=== PATIENT | female | born 1975 | race Caucasian/White ===

== ENCOUNTER 2017-04-28 06:30 | Day surgery (SDC) | payer BC ==
--- NOTE | 2017-04-26 16:48 | HP ---
HISTORY AND PHYSICAL: ATTENDING PHYSICIAN: Jasvir Choudhury MD * (DICTATED BY LATONIA PRUETT) DATE OF ADMISSION: The patient is scheduled for surgery at [facility] on . HISTORY OF PRESENT ILLNESS: The patient, Anitha maguire, is a 41-year-old female who is referred to us here at [facility] on 04/06/17 with a concern of a right breast lump. She was referred by her SPICE MIXER, Dr. Atwood, who is following her since she is 14 weeks and brought to their attention that this fullness in her right breast has been present for the past year, but feels more recently it is more pronounced and sensitive. Her family history is significant for mother being diagnosed with breast cancer at the age of 50 and is currently under the care of Dr. Calderon. Prior to her appointment here on 04/06/17, she underwent an ultrasound at [facility]. This revealed over the palpable area of fullness between 3 o'clock and 7 o'clock, there was a complex cystic mass measuring 5 cm in its greatest dimension. There was a large complex cystic mass was the diagnosis associated with this palpable finding in the right breast and she was then referred on to Dr. Choudhury for further evaluation. The patient again, as mentioned previously, is currently ; she is 14 weeks . This is her second of 2. She has a 7-year-old child. On our examination on 04/06/17, the right breast revealed the fullness in this region between 3 and 6 o'clock. The patient had some sensitivity in this area. Remaining breast exam on the right was negative. The axilla was negative. The left breast revealed some fullness in the upper outer quadrant in the 12 o' clock region. There were no dominant masses on the left and the axilla on the left is negative. An ultrasound in our office was done on 04/06/17. This confirms the complex cyst in the region of the right breast between 3 and 6 o' clock. There are no solid areas noted. The left breast was scanned as well in the area of prominence in the upper quadrant. This revealed dense breast tissue with some microcystic changes. At that appointment, it was discussed with the patient that because of her family history and this fullness in her breast while she is , we feel that tissue diagnosis is indicated to rule out malignancy. We arranged for the patient to undergo an ultrasound- guided core biopsy, which we thought would be more definitive than a fine- needle aspiration and this was done at [facility]. At [facility] on 04/20/17, the patient underwent an ultrasound-guided core biopsy by Dr. Sun. 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 There was no evidence of invasive or in situ carcinoma and this was reported by the pathologist at [facility]. We did discuss with the radiologist and pathologist on concerns that this was a fairly extensive area of microcystic and complex cystic changes. In light of her family history as well as the extent of the findings by ultrasound, although the pathology report came back benign, it was not felt that this was definitive because of the extensive area involved. It was explained to the patient because she is , we are limited as far as the how to further evaluate this with imagery, not able to do a mammogram or MRI at this point and with her family history and the fact that this has been present for some time, we felt that the only definitive way to assure her that this area is completely benign throughout is to do an excisional biopsy. We further consulted with Dr. Atwood who felt that if an excisional biopsy or surgery was indicated, the best time to perform this would be between week 14 and 20, which is currently where she is. We explained also to her that although the pathology so far is benign, we feel that it is a limited slice of tissue in a region that is fairly extensive and for this reason, we feel an excisional biopsy would be indicated. We did offer her that she is more than welcome to get a second opinion. We felt that monitoring this throughout her with ultrasounds could be an option, but again it is not a definitive diagnosis and with her family history, we recommended that tissue diagnosis of this complex cystic area be obtained to rule out any malignancy possible from this time forward as the progresses. The patient understands the concerns and had the opportunity to ask many questions. I spoke with Dr. Atwood as well in regards to this and at this time, she wishes to proceed with surgery as planned. She is scheduled for ultrasound-guided excisional biopsy of this right breast mass to be performed by Dr. Choudhury at [facility] on 04/28/17. PAST MEDICAL HISTORY: Negative for any chronic medical disorders. PAST SURGICAL HISTORY: Includes , she has a 7-year-old daughter. No other surgeries. MEDICATIONS: Current medicine, she is on vitamins only. ALLERGIES: She has no known drug allergies. SOCIAL HISTORY: She is , she is at this point I believe 16 weeks . She works full-time and has a 7-year-old daughter. She is a nonsmoker. No history of alcohol use. No history of drug use and no prior history of hepatitis. FAMILY HISTORY: Again, it should be noted that her mother had breast cancer at the age of 50. She is currently being treated and followed by Dr. Calderon for her breast cancer. PHYSICAL EXAMINATION VITAL SIGNS: Her height is 5 feet 2 inches, her weight is 120 pounds, her blood pressure is 130/81, her BMI was 21.9, pulse is 97, and respiratory rate is 18. HEENT: Within normal limits. NECK: Supple. There is no JVD or carotid bruits. Her thyroid was felt to be normal. LUNGS: Clear throughout. BREASTS: As mentioned previously, she has fullness in the inner quadrant of the right breast between 3 and 6 o'clock. There is not a dominant mass. Remaining breast exam is unremarkable and the axilla on the right is negative. The left breast revealed some fullness in the upper outer quadrant. There is no mass and the axilla on the left is negative. ABDOMEN: Reveals female who is 16 weeks . Her abdomen is soft and nontender. There are no masses. EXTREMITIES: Full range of motion without limitation. She is nonfocal and grossly intact. IMPRESSION: Right breast fullness, mass in this 16-week female. Ultrasound recently revealing a complex cyst of the right breast in the region of fullness. PLAN: At this time is for the patient to undergo excisional biopsy of this right breast mass for complete pathology analysis to rule out malignancy or atypia. The patient will undergo this surgery with the assistance of ultrasound guidance by Dr. Choudhury, which will be available to him in the OR. The patient will undergo the procedure with local anesthesia and IV sedation. LATONIA PRUETT [id number]/[facility] #: [id number] [facility]
[~2017-04-28 06:30] MED LIST: Buffered Lidocaine 0.9% SYRIN* 5 ML/SYR SYRINGE INTRADERM ONE
[2017-04-28] MEDS ORDERED: Bupivacaine 0.5% W/EPI SDV* 30 ML VIAL ONE ×2 (07:23→12:53)
[2017-04-28] MEDS ORDERED: Lidocaine 1% INJ* 10 MG/ML 30 ML SDV ONE (07:23)
[2017-04-28] MEDS ORDERED: fentaNYL* 50 MCG/ML 2 ML VIAL (100 MCG VIAL) ONE (07:43)
[2017-04-28] MEDS ORDERED: Lidocaine 2% PF * 5 ML VIAL ONE (07:43)
[2017-04-28] MEDS ORDERED: Propofol* 10 MG/ML 20 ML BTL IV PUSH ONE (07:43)
[2017-04-28] MEDS ORDERED: Bupivacaine 0.5% SDV PF* 30 ML VIAL ONE (08:39)
[2017-04-28 09:43] VITALS: BP 112/54
--- NOTE | 2017-04-28 13:38 | OP ---
DATE OF OPERATION: 04/28/17 [facility] DATE OF : 73 SURGEON: Jasvir Choudhury MD RD MANAGER: Meme Rodriguez NP ANESTHESIOLOGIST: Eduardo Alexis MD ANESTHESIA: Local plus MAC. PRE-OP DIAGNOSIS: Right breast mass. POST-OP DIAGNOSIS: Right breast mass. OPERATIVE PROCEDURE: 1. Ultrasound-guided needle localization. 2. Excisional right breast biopsy. INDICATIONS: The patient is a 41-year-old female, 17 weeks , with very strong family history of breast cancer, had a palpable mass that she has had for some time, has become larger and tender during this . She underwent an ultrasound-guided core biopsy that was reported to be benign. However, the lesion was large in the 5-cm range and it was felt that this was not traveling representative of the entire lesion and with the patient's history of the mother having breast cancer at a young age, premenopausal, a decision was made to perform an excisional biopsy of the lesion. This was consulted with Dr. Atwood about the proper time to perform this excisional biopsy and the patient is within the ideal period between 16 and 20 weeks. At the present time, she is 17 weeks' and the procedure is being done under local anesthesia and mild sedation. ESTIMATED BLOOD LOSS: Approximately 30 cc. DESCRIPTION OF PROCEDURE: The patient was taken to the procedure room. She underwent marking of the area. The localized area was palpable in the periphery of the areola between 3 and 7 p.m. An ultrasound preoperative confirm a cluster of complex cystic areas and after the patient was prepped and draped in the usual sterile fashion under ultrasound guidance, a hook wire needle was advanced directly into the lesion accessing it at approximately 7 o' clock and guiding it through the lesion and anchoring at this point. The needle was then released. The wire was left in place, confirmed by ultrasound and then we proceeded to then infiltrate lidocaine 1% in the surrounding area of the lesion under direct ultrasound guidance and after this was completed, a transverse incision of approximately 4 to 5 cm was done between 3 o'clock and 7 o'clock. The incision was done transversely. This was carried down through skin, subcutaneous tissue, the guidewire was followed to the tip. The surrounding tissue was then removed where I could see dilated complex cyst and enlarged cluster with mass-like effect. This was excised by sharp dissection until healthy tissue was seen. There was extra tissue in the inferior margin that was excised and sent as a true inferior margin. The margins were marked. Short superior, long lateral sent as a specimen. After this was done, hemostasis was accomplished with electrocautery and using suture ligation with 4 -0 Vicryl. After complete hemostasis was obtained, we then proceeded to close the subcutaneous tissue with interrupted 4-0 Vicryl suture and the skin was closed with subcuticular 4-0 Prolene suture and Steri-Strips. A light pressure dressing was applied to the right breast. The patient tolerated the procedure well. She was recovered, given instructions. [id number]/[facility] #: [id number] [facility]
== END 2017-04-28 10:04 | disposition home or self-care (01) ==
LOC: OREAST 06:30
PROVIDERS: ATTEND Surgery
DX: O92.29 Other disorders of breast associated with pregnancy and the puerperium (principal)
CPT/HCPCS: 88307; J2001; J2704; J3010

== ENCOUNTER 2017-09-25 05:48 | Inpatient (IN) | payer BC ==
[~2017-09-25 05:48] MED LIST changes: +ceFOXitin(*) 2 GM in NS 0.9% 100 ML* 100 ML IVPB SCH
[2017-09-25] MEDS ORDERED: Sodium Citrate/Citric Acid* 15 ML UDC PO ONE (06:00)
[2017-09-25] MEDS ORDERED: Morphine PF AMP (0.5MG/ML)* 5 MG/10 ML AMP ONE (09:44)
[2017-09-25] MEDS ORDERED: Phenylephrine IV* 40 MCG/ML 10 ML SYRINGE ONE (10:08)
[2017-09-25] MEDS ORDERED: Nalbuphine* 20 MG/ML 1 ML VIAL IV PRN (10:34)
[2017-09-25] MEDS ORDERED: Naloxone* 0.4 MG/ML 1 ML VIAL IV PRN (10:34)
[2017-09-25] MEDS ORDERED: DiMENhydriNATE IV* 50 MG/ML VIAL IV PUSH PRN (10:34)
[2017-09-25] MEDS ORDERED: oxyCODONE/Acetamin 5/325 MG* TAB PO PRN (10:34)
[2017-09-25] MEDS ORDERED: Ondansetron INJ* 2 MG/ML VIAL IV PRN (10:34)
[2017-09-25] MEDS ORDERED: OXYTOCIN* 10 UNITS/ML 1 ML VIAL ONE (10:49)
[2017-09-25] MEDS ORDERED: Dibucaine 1% 28.35 GM TUBE PR PRN (11:03)
[2017-09-25] MEDS ORDERED: Acetaminophen TAB* 325 MG PO PRN (11:03)
[2017-09-25] MEDS ORDERED: Glycerin ADULT SUPP PR PRN (11:03)
[2017-09-25] MEDS ORDERED: Witch Hazel PAD* JAR TOPICAL PRN (11:03)
[2017-09-25] MEDS ORDERED: Tetan/Diph/Pertus SYR(Tdap)* 0.5 ML SYR(BOOSTRIX) use SYR IM ONE (11:03)
[2017-09-25] MEDS ORDERED: Oxytocin in LR* 20 UNITS/1,000 ML BAG IVPB SCH (12:00)
[2017-09-25] MEDS: Simethicone TAB* 80 MG TAB.CHEW PO SCH ×3 (13:09→21:37)
[2017-09-25] MEDS: Ketorolac INJ* 30 MG/ML 1 ML VIAL IV PRN ×2 (15:30→21:37)
[2017-09-25] MEDS: Docusate CAP* 100 MG PO SCH ×2 (15:33→21:37)
[2017-09-26] MEDS ORDERED: Zolpidem TAB* 5 MG PO PRN (02:00)
[2017-09-26] MEDS: Ibuprofen TAB* 600 MG PO PRN ×4 (03:19→21:06)
[2017-09-26] MEDS: oxyCODONE/Acetamin 5/325 MG* TAB PO PRN ×5 (03:21→21:06)
[2017-09-26 06:22] LABS: ABS Basophils 0.1 10^3/ul (0-0.2); ABS Eosinophils 0.1 10^3/ul (0-0.6); ABS Lymphocytes 2.5 10^3/ul (1.0-4.8); ABS Monocytes 1.3 10^3/ul (0-0.8); ABS Neutrophils 13.3 10^3/ul (1.5-7.7); ABS Nucleated RBC 0 10^3/ul; Eosinophil % 0.6 % (0-6); Hematocrit 33 % (35-47); Hemoglobin 11.5 g/dl (12.0-16.0); Lymphocyte % 14.4 % (25-47); Mean Corpuscular HGB Conc 34 g/dl (31-36); Mean Corpuscular Hemoglobin 31 pg (27-31); Mean Corpuscular Volume 91 fL (80-97); Mean Platelet Volume 9 um3 (7.4-10.4); Nucleated Red Blood Cells % 0; Platelet Count 299 10^3/ul (150-450); Red Blood Count 3.67 10^6/ul (4.0-5.4); Red Cell Distribution Width 15 % (10.5-15); White Blood Count 17.2 10^3/ul (3.5-10.8)
[2017-09-26] MEDS: Famotidine TAB* 20 MG PO SCH (08:56)
[2017-09-26] MEDS: Docusate CAP* 100 MG PO SCH ×3 (08:57→21:06)
[2017-09-26] MEDS: Simethicone TAB* 80 MG TAB.CHEW PO SCH ×4 (08:57→21:05)
[2017-09-26] MEDS ORDERED: Ferrous Gluconate TAB* 324 MG TAB PO SCH (09:00)
--- NOTE | 2017-09-26 11:41 | OP ---
DATE OF OPERATION: 09/25/17 - ROOM #117 DATE OF : 73 SURGEON: Efrain Atwood MD BACK MAKER: Raina Velasco CNM ANESTHESIOLOGIST: Pa Lee MD ANESTHESIA: Spinal. PRE-OP DIAGNOSIS: Previous section, desires permanent sterilization. POST-OP DIAGNOSIS: Previous section, desires permanent sterilization. OPERATIVE PROCEDURE: Low transverse section and bilateral tubal ligation. ESTIMATED BLOOD LOSS: 600 cc. SPECIMENS: Include fallopian tubes, bilaterally. COMPLICATIONS: None. FINDINGS: Include multiple small fibroids on the serosa x6, 3 anterior and 3 posterior. At the time of , she had a viable female, Apgars 9 and 9, weight was 6 pounds and 11 ounces. Normal-appearing ovaries and fallopian tubes , they did have some decidual reaction on them. DESCRIPTION OF PROCEDURE: The patient identified and procedure identified as section and tubal ligation. The patient was taken to the operating room and prepped and draped in the usual fashion in the left lateral recumbent position under spinal anesthesia. A Pfannenstiel incision was made through the old incision and carried down through fat, fascia, and peritoneum. A transverse incision was made in the lower uterine segment and extended laterally using blunt dissection and bandage scissors. The infant was attempted to be brought to the incision, but would not track through. The vacuum extractor was used to bring the head into the incision better and then the baby was easily delivered. The cord was doubly clamped and cut, and the infant was handed to the awaiting director manufacturing engineering. Cord blood was obtained. Placenta was delivered spontaneously. The uterus was wiped out with a wet lap sponge. The uterine incision was then closed using 0 Polysorb in a running fashion. A second layer was used to imbricate the first layer. Good hemostasis was verified. The right fallopian tube was grasped at its fimbriated ends and ligated x2 using a 0 Polysorb and the fimbriae was excised. Same procedure was done on the left after following it out to its fimbriated ends. Good hemostasis was verified. The uterus was placed back in the abdominal cavity. The incision site and the fallopian tube sites were inspected, found to be hemostatic. The gutters were wiped out with wet lap sponge. The peritoneum was then closed using 3-0 Polysorb in a running fashion. Good hemostasis achieved in the subrectus layers. The fascia was closed using 0 Polysorb in a running fashion. Hemostasis achieved in the subcu and the skin was closed with 4-0 Monocryl in a subcuticular fashion. All sponge and instrument counts were correct. The patient returned to the recovery room in a stable condition. [id number]/[facility] #: [id number] [facility]
[2017-09-26 12:06] VITALS: BP 121/77
[2017-09-27] MEDS: Ibuprofen TAB* 600 MG PO PRN ×2 (05:40→11:34)
[2017-09-27] MEDS: oxyCODONE/Acetamin 5/325 MG* TAB PO PRN ×2 (05:43→11:34)
[2017-09-27] MEDS: Famotidine TAB* 20 MG PO SCH (08:27)
[2017-09-27] MEDS: Docusate CAP* 100 MG PO SCH (08:27)
[2017-09-27] MEDS: Simethicone TAB* 80 MG TAB.CHEW PO SCH (08:27)
== END 2017-09-27 12:50 | disposition home or self-care (01) | DRG 540 ==
LOC: MCHOB 05:48
PROVIDERS: ADMIT Obstetrics & Gynecology; ATTEND Obstetrics & Gynecology
PROC: 4A1HXCZ Monitoring of Products of Conception, Cardiac Rate, External Approach (ICD-10-PCS; 2017-09-25)
PROC: 0UB70ZZ Excision of Bilateral Fallopian Tubes, Open Approach (ICD-10-PCS; 2017-09-25)
PROC: 10D00Z1 Extraction of Products of Conception, Low, Open Approach (ICD-10-PCS; principal; 2017-09-25 07:45)
DX: O34.211 Maternal care for low transverse scar from previous cesarean delivery (principal); O24.429 Gestational diabetes mellitus in childbirth, unspecified control; D25.9 Leiomyoma of uterus, unspecified; O99.824 Streptococcus B carrier state complicating childbirth; O34.13 Maternal care for benign tumor of corpus uteri, third trimester; Z3A.39 39 weeks gestation of pregnancy; Z37.0 Single live birth; Z30.2 Encounter for sterilization
CPT/HCPCS: 36415; 85025; 88302; A9270-GY; J0694; J1885; J2590